=== PATIENT | female | born 1975 | race Caucasian/White ===

== ENCOUNTER 2018-08-30 16:35 | Emergency (ER) | payer OTHER ==
[~2018-08-30] VITALS: Ht 162.6 cm; Wt 80.7 kg
[2018-08-30 16:45] VITALS: BP 133/86
[2018-08-30] MEDS ORDERED: HYDROcodone/APAP 5/325MG 1 TAB TABLET PO ONE (17:30)
[2018-08-30] MEDS ORDERED: HYDR-3165 PO (17:35)
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
== END 2018-08-30 18:00 | disposition home or self-care (01) ==
LOC: ER 16:35
DX: S60.031A Contusion of right middle finger without damage to nail, initial encounter (principal); S60.041A Contusion of right ring finger without damage to nail, initial encounter; R11.11 Vomiting without nausea; Z88.8 Allergy status to other drugs, medicaments and biological substances; W22.8XXA Striking against or struck by other objects, initial encounter; Y93.89 Activity, other specified; Y92.89 Other specified places as the place of occurrence of the external cause; Y99.8 Other external cause status
CPT/HCPCS: 73130; 99283

== ENCOUNTER 2020-03-04 16:59 | Emergency (ER) | payer OTHER ==
[~2020-03-04] VITALS: Ht 166.4 cm; Wt 82.3 kg
[~2020-03-04 16:59] MED LIST: HYDR-3165 PO
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
[2020-03-04] MEDS ORDERED: CYCL-331 PO (17:32)
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
[2020-03-04 17:47] VITALS: BP 130/98
== END 2020-03-04 17:45 | disposition home or self-care (01) ==
LOC: ER 16:59
DX: M25.511 Pain in right shoulder (principal); Z88.8 Allergy status to other drugs, medicaments and biological substances; V49.49XA Driver injured in collision with other motor vehicles in traffic accident, initial encounter; Y93.I9 Activity, other involving external motion; Y92.488 Other paved roadways as the place of occurrence of the external cause; Y99.8 Other external cause status
CPT/HCPCS: 73000; 99283

== ENCOUNTER 2020-03-07 15:13 | Emergency (ER) | payer OTHER ==
[~2020-03-07] VITALS: Ht 166.4 cm; Wt 82.3 kg
[~2020-03-07 15:13] MED LIST changes: +CYCL-331 PO
[2020-03-07] MEDS ORDERED: IOHEXOL 350 MG/ML 100 ML VIAL. IV ONE (16:00)
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
[2020-03-07 17:46] VITALS: BP 133/95
== END 2020-03-07 17:45 | disposition home or self-care (01) ==
LOC: ER 15:13
DX: R20.2 Paresthesia of skin (principal); Z88.8 Allergy status to other drugs, medicaments and biological substances; V98.8XXA Other specified transport accidents, initial encounter; Y93.89 Activity, other specified; Y92.89 Other specified places as the place of occurrence of the external cause; Y99.8 Other external cause status
CPT/HCPCS: 70496; 70498; 81025; 99285; Q9967

== ENCOUNTER → 2020-04-13 | Outpatient (CLI) | payer OTHER ==
--- NOTE | 2020-04-13 10:39 | RAD ---
PROCEDURE: CERVICAL SPINE 5V, SHOULDER 2+V RIGHT STUDY DATE: 04/13/2020 CLINICAL INDICATION / HISTORY: Reason: CERVICALGIA / Spl. Instructions: / History: . TECHNIQUE: 5 VIEWS: AP, lateral, bilateral oblique and odontoid COMPARISON: None available FINDINGS: Alignment is within normal limits. There is preservation of the normal cervical lordosis. Vertebral body heights and disc spaces are well maintained. Bilateral oblique views show minimal endplate osteophytic spurring resulting in mild bilateral C5-C6 foraminal narrowing. The atlantoaxial joint is well maintained. No fracture or subluxation is identified. Prevertebral and paraspinous soft tissues are unremarkable. IMPRESSION: Minimal early degenerative changes at C5-C6 with mild bilateral foraminal narrowing. Otherwise unremarkable C-spine series with no evidence of fracture or subluxation in the cervical spine. PROCEDURE: CERVICAL SPINE 5V, SHOULDER 2+V RIGHT STUDY DATE: 04/13/2020 CLINICAL INDICATION / HISTORY: Reason: CERVICALGIA / Spl. Instructions: / History: . TECHNIQUE: Grashey and axillary views with a Y- view were obtained. COMPARISON: None FINDINGS: No fracture, dislocation or bone destruction is identified. There are no degenerative changes at the right AC joint. No calcifications are seen in relation to the rotator cuff insertion. IMPRESSION: No acute osseous abnormality. Electronically signed by: Patito Cortes MD (04/13/2020 10:36 AM) [id number]
== END | disposition home or self-care (01) ==
LOC: DXRAD 09:16
PROVIDERS: ATTEND Physician Assistant
DX: M47.22 Other spondylosis with radiculopathy, cervical region (principal); M48.02 Spinal stenosis, cervical region; M25.78 Osteophyte, vertebrae; M25.511 Pain in right shoulder
CPT/HCPCS: 72050; 73030